=== PATIENT | female | born 1985 | race Caucasian/White ===

== ENCOUNTER 2016-12-22 11:47 | Emergency (ER) | payer BC, MEDICAID ==
[2016-12-22] MEDS ORDERED: IBUPROFEN 600 MG TABLET PO ONE (11:54)
--- NOTE | 2016-12-22 11:57 | ER Document Report ---
ED General - General Stated Complaint: CHEST PAIN Time Seen by Provider: 12/22/16 11:54 Mode of Arrival: Ambulatory Information source: Patient TRAVEL OUTSIDE OF THE [place] IN LAST 30 DAYS: No - HPI Patient complains to provider of: Left neck, chest and shoulder pain Onset: This morning Onset/Duration: Sudden Quality of pain: Achy Severity: Moderate Pain Level: 3 Associated symptoms: Body/muscle aches Exacerbated by: Movement, Coughing, Deep breathing Relieved by: Denies Similar symptoms previously: No Notes: Patient is a 31-year-old female with no past medical history, presenting to the emergency room today complaining of pain coming from her left neck radiating down into her left superior anterior chest wall, shoulder and down the arm, concerned she may have a pinched nerve, she woke up this way this morning and may have slept on it awkwardly, she denies any shortness of breath, no cough, cold or congestion, no history of any coronary artery disease, no history of DVT , denies any calf tenderness, no injury or trauma - Related Data Allergies/Adverse Reactions: No Known Allergies Allergy (Verified 07/19/14 03:45) Past Medical History - General Information source: Patient - Social History Smoking Status: Never Smoker Family History: Reviewed & Not Pertinent Past Surgical History: Reports: Hx Section - X3 - Immunizations Hx Diphtheria, Pertussis, Tetanus Vaccination: Yes Review of Systems - Review of Systems Constitutional: No symptoms reported EENT: No symptoms reported Cardiovascular: Chest pain Respiratory: No symptoms reported Gastrointestinal: No symptoms reported Genitourinary: No symptoms reported Female Genitourinary: No symptoms reported Musculoskeletal: See HPI Skin: No symptoms reported Hematologic/Lymphatic: No symptoms reported Neurological/Psychological: No symptoms reported -: Yes All other systems reviewed and negative Physical Exam - Vital signs Vitals: Temp Pulse Resp BP Pulse Ox 98.1 F 79 16 128/76 H 100 12/22/16 11:52 12/22/16 11:52 12/22/16 11:52 12/22/16 11:52 12/22/16 11:52 Interpretation: Normal - General General appearance: Appears well, Alert - HEENT Head: Normocephalic, Atraumatic Eyes: Normal Pupils: PERRL Neck: Other - Tender to palpate in the left cervical paraspinal musculature - Respiratory Respiratory status: No respiratory distress Chest status: Tender - Tenderness to palpate in the soft tissue of the left superior anterior chest wall Breath sounds: Normal Chest palpation: Normal - Cardiovascular Rhythm: Regular Heart sounds: Normal auscultation Murmur: No - Abdominal Inspection: Normal Distension: No distension Bowel sounds: Normal Tenderness: Nontender Organomegaly: No organomegaly - Back Back: Normal, Nontender - Extremities General upper extremity: Normal inspection, Tender - Tender to palpate in the soft tissue of the left anterior superior chest wall down into the left upper extremity, Normal color, Normal ROM, Normal temperature General lower extremity: Normal inspection, Nontender, Normal color, Normal ROM , Normal temperature, Normal weight bearing. No: Krystin's sign - Neurological Neuro grossly intact: Yes Cognition: Normal Orientation: AAOx4 P[place]o Coma Scale Eye Opening: Spontaneous [place] Coma Scale Verbal: Oriented [place] Coma Scale Motor: Obeys Commands Pipo Coma Scale Total: 15 Speech: Normal Motor strength normal: LUE, RUE, LLE, RLE Sensory: Normal - Psychological Associated symptoms: Normal affect, Normal mood - Skin Skin Temperature: Warm Skin Moisture: Dry Skin Color: Normal Course - Re-evaluation Re-evalutation: 12/22/16 12:33 X-ray and EKG findings were discussed with patient which are unremarkable, she has no risk factors for coronary artery disease, DVT or PE, symptoms are reproducible with palpation of the chest and soft tissue of the upper arm, symptoms appear to be musculoskeletal in nature, she will be placed on Motrin 600 mg 3 times a day and advised to follow-up with the primary care provider in 2-3 days or return if symptoms worsen, patient acknowledges understanding and agreement with this plan - Vital Signs Vital signs: Temp Pulse Resp BP Pulse Ox 98.1 F 79 16 128/76 H 100 12/22/16 11:52 12/22/16 11:52 12/22/16 11:52 12/22/16 11:52 12/22/16 11:52 - Diagnostic Test Radiology reviewed: Image reviewed, Reports reviewed - EKG Interpretation by Me EKG shows normal: Sinus rhythm Rate: Normal Rhythm: NSR Discharge - Discharge Clinical Impression: Chest wall pain, Radiculopathy affecting upper extremity Condition: Stable Disposition: HOME, SELF-CARE Instructions: Anti-Inflammatory Medication ([facility]), Chest Wall Pain ([facility]), Radiculopathy ([facility]) Additional Instructions: Follow up with your primary care provider in one to 2 days. Return to the emergency room immediately if symptoms worsen or any additional concerns. Prescriptions: Ibuprofen [Motrin 600 Mg Tablet] 600 mg PO TID #30 tablet
--- NOTE | 2016-12-22 12:52 | RADIOLOGY REPORT (SQ) ---
EXAM DESCRIPTION: CHEST PA/LAT COMPLETED DATE/TIME: 12/22/2016 12:20 pm REASON FOR STUDY: left chest pain COMPARISON: None. EXAM PARAMETERS: NUMBER OF VIEWS: two views TECHNIQUE: Digital Frontal and Lateral radiographic views of the chest acquired. RADIATION DOSE: NA LIMITATIONS: none FINDINGS: LUNGS AND PLEURA: No opacities, masses or pneumothorax. No pleural effusion. MEDIASTINUM AND HILAR STRUCTURES: No masses or contour abnormalities. HEART AND VASCULAR STRUCTURES: Heart normal size. No evidence for failure. BONES: No acute findings. HARDWARE: None in the chest. OTHER: No other significant finding. IMPRESSION: NO SIGNIFICANT RADIOGRAPHIC FINDING IN THE CHEST. TECHNICAL DOCUMENTATION: JOB ID: [id number] [employer]- All Rights Reserved
[2016-12-22 12:58] VITALS: BP 118/68
--- NOTE | 2016-12-22 13:41 | EKG REPORT ---
SEVERITY:- NORMAL ECG - SINUS RHYTHM : Confirmed by: Mata Burkett 22-Dec-2016 13:40:28
== END 2016-12-22 12:54 | disposition home or self-care (01) ==
LOC: ER 11:47
DX: R07.89 Other chest pain (principal); M54.10 Radiculopathy, site unspecified; M54.2 Cervicalgia; M25.512 Pain in left shoulder
CPT/HCPCS: 71020; 93005; 93010; 99285

== ENCOUNTER 2017-04-16 01:34 | Emergency (ER) | payer BC ==
--- NOTE | 2017-04-16 02:53 | ER Document Report ---
ED GI/ - General Mode of Arrival: Ambulatory Information source: Patient TRAVEL OUTSIDE OF THE [place] IN LAST 30 DAYS: No <MARGY GILBERT - Last Filed: 04/16/17 02:54> <BERNARD GREENE - Last Filed: 04/16/17 06:05> - General Chief Complaint: Abdominal Pain Stated Complaint: ABDOMINAL PAIN Time Seen by Provider: 04/16/17 02:21 Notes: Patient is a 32 year old female that presents to the emergency department today with complaints of right sided sharp abdominal pain beginning suddenly this evening at 2330. Patient states she was sleeping when her symptoms began. Patient states her mom has a history of ovarian cysts but she has not. Patient states she last ate at 2100. Patient denies nausea, vomiting, dysuria, or vaginal discharge. (MARGY GILBERT) - Related Data Allergies/Adverse Reactions: No Known Allergies Allergy (Verified 07/19/14 03:45) Past Medical History - General Information source: Patient - Social History Smoking Status: Never Smoker Cigarette use (# per day): No Frequency of alcohol use: None Drug Abuse: None Lives with: Family Family History: Reviewed & Not Pertinent Patient has suicidal ideation: No Patient has homicidal ideation: No Renal/ Medical History: Denies: Hx Peritoneal Dialysis Past Surgical History: Reports: Hx Section - X3, Hx Tubal Ligation - Immunizations Hx Diphtheria, Pertussis, Tetanus Vaccination: Yes <MARGY GILBERT - Last Filed: 04/16/17 02:54> Review of Systems - Review of Systems Constitutional: No symptoms reported EENT: No symptoms reported Cardiovascular: No symptoms reported Respiratory: No symptoms reported Gastrointestinal: See HPI, Abdominal pain. denies: Diarrhea, Nausea, Vomiting Genitourinary: See HPI, Dysuria Female Genitourinary: denies: Vaginal discharge Musculoskeletal: No symptoms reported Skin: No symptoms reported Hematologic/Lymphatic: No symptoms reported Neurological/Psychological: No symptoms reported -: Yes All other systems reviewed and negative <MARGY GILBERT - Last Filed: 04/16/17 02:54> Physical Exam <MARGY GILBERT - Last Filed: 04/16/17 02:54> <BERNARD GREENE - Last Filed: 04/16/17 06:05> - Vital signs Vitals: Temp Pulse Resp BP Pulse Ox 98.7 F 93 20 131/80 H 98 04/16/17 01:42 04/16/17 01:42 04/16/17 01:42 04/16/17 01:42 04/16/17 01:42 - Notes Notes: PHYSICAL EXAM GENERAL: Alert, interacts well. Appears acutely uncomfortable. HEAD: Normocephalic, atraumatic. EYES: Pupils equal, round, and reactive to light. Extraocular movements intact. ENT: Oral mucosa moist, tongue midline. NECK: Full range of motion. Supple. Trachea midline. LUNGS: Clear to auscultation bilaterally, no wheezes, rales, or rhonchi. No respiratory distress. HEART: Regular rate and rhythm. No murmurs, gallops, or rubs. ABDOMEN: Soft, diffuse tenderness with palpation with increasing tenderness in the suprapubic area and right lower quadrant. Diffuse voluntary guarding. Non- distended. Bowel sounds present in all 4 quadrants. No rebound or rigidity. EXTREMITIES: Moves all 4 extremities spontaneously. No edema, radial and dorsalis pedis pulses 2/4 bilaterally. No cyanosis. NEUROLOGICAL: Alert and oriented x3. Normal speech. PSYCH: Normal affect, normal mood. SKIN: Warm, dry, normal turgor. No rashes or lesions noted. (MARGY GILBERT) Course <MARGY GILBERT - Last Filed: 04/16/17 02:54> - Laboratory Result Diagrams: 04/16/17 03:00 04/16/17 03:00 <BERNARD GREENE - Last Filed: 04/16/17 06:05> - Re-evaluation Re-evalutation: 04/16/17 05:53 I was concerned about both ovarian torsion and acute appendicitis, more for torsion due to how suddenly the pain onset. TV US did not identify the right ovary. CT of the abdomen and pelvis identified a normal appendix, no ovarian enlargement which makes torsion less likely, and a small amount of free fluid as well as mild thickening of the terminal ileum. Patient is still somewhat uncomfortable, CBC shows very mild leukocytosis. At present I am concerned that we missing an early appendicitis that is not yet radiographically apparent , but the inflammation at the terminal ileum could explain her pain as well. Patient was given strict return precautions including return for fever, increasing pain, vomiting or any new or concerning symptoms. 04/16/17 05:56 (BERNARD GREENE) - Vital Signs Vital signs: Temp Pulse Resp BP Pulse Ox 98.7 F 93 14 116/73 98 04/16/17 01:42 04/16/17 01:42 04/16/17 03:01 04/16/17 03:00 04/16/17 03:01 - Laboratory Laboratory results interpreted by me: 04/16/17 04/16/17 03:00 03:00 WBC 10.6 H Seg Neutrophils % 87.8 H Lymphocytes % 8.6 L Absolute Neutrophils 9.3 H AST 41 H Discharge <MARGY GILBERT - Last Filed: 04/16/17 02:54> <BERNARD GREENE - Last Filed: 04/16/17 06:05> - Discharge Clinical Impression: Right lower quadrant abdominal pain of unknown etiology Condition: Stable Disposition: HOME, SELF-CARE Instructions: Observation for Appendicitis ([facility]) Referrals: GUIDO CHAVEZ PA-C [Primary Care Provider] - Follow up in 3-5 days Scribe Attestation: 04/16/17 06:05 I personally performed the services described in the documentation, reviewed and edited the documentation which was dictated to the scribe in my presence, and it accurately records my words and actions. (BERNARD GREENE) Scribe Documentation - Scribe Written by Go:: Go Kidd, 04/16/2017 0312 acting as scribe for :: Romario <MARGY GILBERT - Last Filed: 04/16/17 02:54>
[2017-04-16] MEDS ORDERED: HYDROMORPHONE HCL INJ/PF 2 MG/ML AMPULE IV ONE (02:56)
[2017-04-16] MEDS ORDERED: ONDANSETRON HCL INJ/PF 4 MG/2 ML SDV IV ONE (02:57)
[2017-04-16] MEDS ORDERED: RINGERS SOLUTION,LACTATED 1,000 ML IV ONE (02:57)
[2017-04-16 03:23] LABS: APPEARANCE,URINE CLEAR; BILIRUBIN,URINE NEGATIVE (NEGATIVE); COLOR,URINE YELLOW; GLUCOSE, URINE NEGATIVE (NEGATIVE); KETONES,URINE NEGATIVE (NEGATIVE); LEUKOCYTE ESTERASE,URINE NEGATIVE (NEGATIVE); NITRITE,URINE NEGATIVE (NEGATIVE); PROTEIN,URINE NEGATIVE (NEGATIVE); URINE SPECIFIC GRAVITY 1.027; UROBILINOGEN,URINE NEGATIVE mg/dL (<2.0)
[2017-04-16 03:27] LABS: ALANINE AMINOTRANSFERASE 24 U/L (9-52); ALBUMIN 4.6 g/dL (3.5-5.0); ALKALINE PHOSPHATASE 60 U/L (38-126); ANION GAP 10 (5-19); ASPARTATE AMINO TRANSFERASE 41 U/L (14-36); BILIRUBIN,DIRECT 0.4 mg/dL (0.0-0.4); BILIRUBIN,TOTAL 0.4 mg/dL (0.2-1.3); BLOOD UREA NITROGEN 18 mg/dL (7-20); CALCIUM 9.4 mg/dL (8.4-10.2); CARBON DIOXIDE 26 mmol/L (22-30); CHLORIDE 107 mmol/L (98-107); GLUCOSE 94 mg/dL (75-110); TOTAL PROTEIN 7.3 g/dL (6.3-8.2)
[2017-04-16 03:35] LABS: ABSOLUTE LYMPHOCYTES (AUTO) 0.9 10^3/uL (0.5-4.7); ABSOLUTE MONOCYTES (AUTO) 0.3 10^3/uL (0.1-1.4); ABSOLUTE NEUT (AUTO) 9.3 10^3/uL (1.7-8.2); BASOPHILS % (AUTO) 0.1 % (0-2); EOSINOPHILS % (AUTO) 0.3 % (0-6); HEMATOCRIT 40.5 % (36.0-47.0); HEMOGLOBIN 13.7 g/dL (12.0-15.5); LYMPHOCYTES % (AUTO) 8.6 % (13-45); MEAN CORPUSCULAR HEMOGLOBIN 30.6 pg (27.0-33.4); MEAN CORPUSCULAR HGB CONC 33.8 g/dL (32.0-36.0); MEAN CORPUSCULAR VOLUME 91 fl (80-97); MONOCYTES % (AUTO) 3.2 % (3-13); PLATELET COUNT 195 10^3/uL (150-450); RED BLOOD COUNT 4.47 10^6/uL (3.72-5.28); RED CELL DISTRIBUTION WIDTH 12.9 % (11.5-14.0); SEGMENTED NEUTROPHILS % (AUTO) 87.8 % (42-78); TOTAL CELLS COUNTED % (AUTO) 100 %; WHITE BLOOD COUNT 10.6 10^3/uL (4.0-10.5)
--- NOTE | 2017-04-16 04:09 | RADIOLOGY REPORT (SQ) ---
EXAM DESCRIPTION: U/S NON OB PEL TV W/DOPPLER CLINICAL HISTORY: 32 years Female, sudden RLQ abd pain, eval for torsion COMPARISON: None. TECHNIQUE: Complete pelvic ultrasound with transvaginal and transabdominal imaging. Limited color spectral Doppler imaging of the ovaries. FINDINGS: Uterus measures 8.9 x 6.6 x 4.9 cm. Arcuate uterus. Endometrial thickness of 0.8 cm on the right endometrium and 0.7 cm the left endometrium. Nabothian cysts. The cervix measures 2.9 cm and is closed. No myometrial masses. Right ovary is not identified due to overlying bowel gas. The left ovary measures 3.3 x 3.3 x 2.5 cm. Limited color and spectral Doppler images demonstrate flow within the left ovary. Small amount of free pelvic fluid. IMPRESSION: 1. The right ovary is not identified due to overlying bowel gas. 2. Arcuate uterus. 3. Small amount of free pelvic fluid.
--- NOTE | 2017-04-16 05:28 | RADIOLOGY REPORT (SQ) ---
EXAM DESCRIPTION: CT ABDOMEN AND PELVIS WITH CONTRAST CLINICAL HISTORY: RLQ abd pain COMPARISON: None Available. TECHNIQUE: CT of the abdomen and pelvis are performed during IV bolus administration of 82.2 mL of Isovue-[id number]. DLP: 1176 mGycm FINDINGS: Abdomen: The liver has normal size and density. No intrahepatic mass or biliary dilatation. No calcified gallstones. The spleen, pancreas, and adrenal glands are unremarkable. The kidneys have normal size and contour without evidence of solid mass or hydronephrosis. The aorta and IVC have normal caliber and position. The portal vein patent. The proximal visceral and renal arteries are patent. No free intraperitoneal air. The stomach and duodenum have normal course. Pelvis: Uterus is not enlarged. Postoperative change in the pelvis. The ovaries are not enlarged. Urinary bladder is unremarkable. Small amount of free pelvic fluid. No dilated loops of large or small bowel. Nonspecific inflammatory change in the right abdominal mesentery and possible mild wall thickening of the terminal ileum. Normal appendix. The visualized lung bases are clear. No destructive bone lesions identified. IMPRESSION: 1. Mild wall thickening of the terminal ileum with mild right lower quadrant inflammatory change. This could be seen with nonspecific enteritis. 2. Normal appendix. 3. Small amount of free pelvic fluid. 4. The ovaries are not enlarged by CT criteria. This exam was performed according to our departmental dose-optimization program, which includes automated exposure control, adjustment of the mA and/or kV according to patient size and/or use of iterative reconstruction technique.
[2017-04-16] MEDS ORDERED: OXYCODONE-ACETAMINOPHEN 5-325 MG TABLET PO ONE (05:50)
[2017-04-16] MEDS ORDERED: DICYCLOMINE HCL INJ 20 MG/2 ML AMPULE IM ONE (06:14)
[2017-04-16] MEDS ORDERED: METOCLOPRAMIDE HCL INJ/PF 10 MG/2 ML SDV IV ONE (07:45)
[2017-04-16] MEDS ORDERED: DIPHENHYDRAMINE HCL 50 MG/ML VIAL IV ONE (07:45)
[2017-04-16 08:35] VITALS: BP 102/59
== END 2017-04-16 08:36 | disposition home or self-care (01) ==
LOC: ER 01:34
DX: R10.31 Right lower quadrant pain (principal)
CPT/HCPCS: 99284; 96372; 96361; 96374; 96375; 36415; 84703; 85025; 80053; 81001; 76830; 93976; 74177; J0500; J1170; J2405; J7120